=== PATIENT | male | born 1960 | race Two or more races ===

== ENCOUNTER 2017-05-05 07:38 | Outpatient (CLI) | payer MEDICARE, OTHER ==
[~2017-05-05 07:38] MED LIST: ASPI-1169 PO; ATOR10TA PO; CARV25TA2 PO; FENO145T PO; OLME20TA13 PO
[2017-05-05] MEDS ORDERED: REGADENOSON 0.4 MG/5 ML DISP.SYRIN IVP ONE (09:30)
== END 2017-05-05 23:59 | disposition home or self-care (01) ==
LOC: NM 07:38
PROVIDERS: ATTEND Internal Medicine Interventional Cardiology
DX: R07.89 Other chest pain (principal)
CPT/HCPCS: 78452; A9502; J2785

== ENCOUNTER 2017-06-08 13:15 | Inpatient (IN) | payer MEDICARE, OTHER ==
[2017-06-07 20:00] VITALS: BP 123/72
[~2017-06-08] VITALS: Ht 175.3 cm; Wt 133.8 kg
[2017-06-08] VITALS: BP 113/61
--- NOTE | 2017-06-08 13:20 | NUR ---
AAOX3, CAME TO ER C/O CHEST PAIN TOOK NITRO X 3, NO RELIEF. RR IS EVEN AND UNLABORED. SKIN IS WARM AND NON DIAPHORETIC. PLACED ON THE MONITOR, V-TACH ON THE MONITOR, DR YI MADE AWARE. EKG IN PROGRESS AT . PLACED ON PACER PADS. STARTED IVHL L HAND 18G. BLOOD DRAWN AND SENT TO THE LAB.
[2017-06-08] MEDS ORDERED: ONDANSETRON HCL/PF 4 MG/2 ML VIAL IVP ONE (13:30)
[2017-06-08] MEDS ORDERED: ASPIRIN 81 MG TAB.CHEW PO ONE (13:30)
[2017-06-08] MEDS ORDERED: LIDOCAINE 100MG/5ML DISP SYR ONE (13:33)
[2017-06-08] MEDS ORDERED: LIDOCAINE 2% 20 ML MDV ONE (13:33)
[2017-06-08 13:38] LABS: BASOPHILS # (AUTO) 0.1 /CMM (0.0-0.2); BASOPHILS % (AUTO) 0.7 % (0.0-2.0); HEMATOCRIT 45 % (39-51); HEMOGLOBIN 15.1 g/dL (13.5-17.5); LYMPHOCYTES # (AUTO) 3.1 /CMM (0.8-4.8); LYMPHOCYTES % (AUTO) 30.7 % (20.0-44.0); MEAN CORPUSCULAR HGB CONC 34 g/dl (31.0-36.0); MEAN CORPUSCULAR VOLUME 90 fL (80-96); MONOCYTES # (AUTO) 0.7 /CMM (0.1-1.30); MONOCYTES % (AUTO) 7.3 % (2.0-12.0); NEUTROPHILS # (AUTO) 5.9 /CMM (1.8-8.9); NEUTROPHILS % (AUTO) 59.3 % (43.0-81.0); PLATELET COUNT (AUTO) 282 /CMM (150-450); RDW COEFFICIENT OF VARIATION 12.8 (11.5-15.0); RED BLOOD CELL COUNT(AUTO) 5.03 MIL/uL (4.5-6.0)
[2017-06-08] MEDS ORDERED: ONDANSETRON HCL/PF 4 MG/2 ML VIAL ONE (13:41)
[2017-06-08] MEDS ORDERED: ASPIRIN 81 MG TAB.CHEW ONE (13:41)
--- NOTE | 2017-06-08 13:43 | NUR ---
CALLED 'S OFFICE, PAGED TO CALL BACK.
[2017-06-08 13:47] LABS: CALCIUM, SERUM 9.1 mg/dL (8.5-10.1); CREATININE 1.1 mg/dL (0.6-1.3); POTASSIUM 4.6 mmol/L (3.5-5.1)
[2017-06-08 13:48] LABS: INR 0.91 (0.85-1.15)
[2017-06-08 13:53] LABS: ALBUMIN 3.4 g/dL (3.4-5.0); BILIRUBIN,DIRECT 0.1 mg/dL (0.0-0.2); BILIRUBIN,TOTAL 0.3 mg/dL (0.2-1.0)
[2017-06-08 13:58] LABS: TROPONIN I 0.726 ng/mL (0.00-0.056)
[2017-06-08] MEDS ORDERED: IV LIDOCAINE HCL/D5W/PF/500ML 2,000 MG in PREMIX 1 EA IV PRN (14:00)
[2017-06-08] MEDS ORDERED: LIDOCAINE 100MG/5ML DISP SYR IV ONE (14:00)
[2017-06-08] MEDS ORDERED: AMIODARONE 150 MG/3 ML VIAL IV ONE (14:00)
--- NOTE | 2017-06-08 14:08 | NUR ---
CALLED AT [phone], LEFT MESSAGE ON VOICEMAIL.
--- NOTE | 2017-06-08 14:15 | NUR ---
ICU 253
--- NOTE | 2017-06-08 14:15 | NUR ---
AMIODARONE BOLUS NOT GIVEN -- DUPLICATE ORDER
--- NOTE | 2017-06-08 14:20 | NUR ---
CALLED CORPORATE OPERATIONS COMPLIANCE MANAGER CARDIOLOGY, CORPORATE OPERATIONS COMPLIANCE MANAGER, TRANSFERRED CALL TO
[2017-06-08] MEDS ORDERED: AMIODARONE 150 MG in IV D5W 100 ML IV ONE (14:30)
[2017-06-08] MEDS ORDERED: AMIODARONE 900 MG in IV D5W 482 ML IV PRN ×2 (14:30→17:30)
[2017-06-08] MEDS ORDERED: METOPROLOL TARTRATE INJ 5 MG/5 ML AMPUL ONE (14:38)
[2017-06-08] MEDS ORDERED: MIDAZOLAM HCL 2 MG/2ML VIAL ONE ×2 (14:38→14:39)
--- NOTE | 2017-06-08 14:40 | NUR ---
DR PORTILLO INITIALLY HAS A VERBAL ORDER OF VERSED 2MG, BUT PATIENT'S BP WAS DROPPED TO 85/52, DR PORTILLO CHANGED HIS ORDER TO ETOMIDATE INSTEAD.
[2017-06-08] MEDS ORDERED: ETOMIDATE 2 MG/ML VIAL ONE (14:41)
--- NOTE | 2017-06-08 14:45 | NUR ---
CARDIOVERSION DONE BY DR. PORTILLO, DR. COHEN PRESENT AT BS. RT AT BS. WITH ERBAL ORDERS RECEIVED AND CARRIED OUT PER PROTOCOL. 1445- 25MG IVP ETOMIDATE 1447- 25MG IVP ETOMIDATE 1448- 25MG IVP ETOMIDATE 1449- 25MG IVP ETOMIDATE 1450- 200 JOULES UNITS DELIVERED 1451 PT CONVERTED HR-71. BP-109/67, 24 RR, 100% RA. WILL MONITOR.
[2017-06-08] MEDS ORDERED: AMIODARONE 900 MG in IV D5W 500 ML IV PRN (15:00)
[2017-06-08] MEDS: Magnesium 1GM/D5W 100ML PREMIX 100 ML IV SCH ×2 (15:00→15:46)
[2017-06-08] MEDS ORDERED: Magnesium 1 GM/2 ML VIAL IV ONE (15:30)
[2017-06-08] MEDS ORDERED: VILA40TA PO (15:41)
[2017-06-08] MEDS ORDERED: FURO20TA4 PO (15:41)
[2017-06-08] MEDS ORDERED: LURA40TA PO (15:41)
[2017-06-08] MEDS ORDERED: FLUT1DIS3 IH (15:41)
[2017-06-08] MEDS ORDERED: ICOS1CAP PO (15:41)
[2017-06-08] MEDS ORDERED: METF-442 PO (15:41)
[2017-06-08] MEDS ORDERED: GLIM2TAB2 PO (15:41)
[2017-06-08] MEDS ORDERED: CLOP75TA15 PO (15:41)
[2017-06-08] MEDS ORDERED: MAG1TAB.8 PO (15:41)
[2017-06-08] MEDS ORDERED: ESOM40CA PO (15:41)
[2017-06-08] MEDS ORDERED: TAMS0.4C34 PO (15:41)
[2017-06-08] MEDS ORDERED: Magnesium 1GM/D5W 100ML PREMIX 200 ML IV ONE (15:43)
--- NOTE | 2017-06-08 16:02 | NUR ---
REPORT GIVEN TO DEAN BASILIO FOR [facility] ICU 253.
[2017-06-08 17:23] VITALS: BP 128/78
[2017-06-08] MEDS ORDERED: Z GUARD REMEDY 2 OZ OINT TP PRN (17:30)
[2017-06-08] MEDS ORDERED: ETOMIDATE 2 MG/ML VIAL IV ONE (17:30)
[2017-06-08] MEDS ORDERED: ONDANSETRON HCL/PF 4 MG/2 ML VIAL IVP PRN (17:30)
[2017-06-08] MEDS ORDERED: ZOLPIDEM TARTRATE 5 MG TABLET PO PRN (17:30)
[2017-06-08] MEDS ORDERED: FUROSEMIDE 20 MG TABLET PO SCH (17:30)
[2017-06-08] MEDS ORDERED: ACETAMINOPHEN 325 MG TABLET PO PRN (17:30)
[2017-06-08] MEDS ORDERED: HYDROCODONE/APAP 5/325MG 1 EACH TABLET PO PRN (17:30)
[2017-06-08] MEDS ORDERED: MAG HYDROX/AL HYDROX/SIMETH 30 ML UDC PO PRN (17:30)
[2017-06-08] MEDS ORDERED: MAGNESIUM HYDROXIDE 30 ML UDC PO PRN (17:30)
--- NOTE | 2017-06-08 17:53 | NUR ---
STEPHANIE RN NOTE 1715: Admitted 56 y/o Georgian male patient from ER for chest pain, SP cardioversion for episode of Vtach. Placed on bed comfortably. A/Ox4. With 2 PIVs intact. On Amio drip @ 1mg/min, to continue started at 1430 per ER nurse. SR 62 on the monitor. Witrh 1/10 chest pain, verbalized relief, said pain is a lot better. 94% on room air, no SON noted, patient requested to remove NC, will monitor for breathing. Skin assessment done, intact. and mother of patient in the room, made all aware for the POC. 2 bags on Mg given per ER nurse. 1750: blow mold technician at bedside. No any significant changes noted at this time. Kept clean, warm and dry. Needs attended. Kept call light at reach. Will continue to monitor.
[2017-06-08] MEDS ORDERED: SIMETHICONE 80 MG TAB.CHEW PO PRN (18:00)
[2017-06-08] MEDS: IV NS 0.9% 1,000 ML IV PRN (18:19)
[2017-06-08 20:00] VITALS: BP 123/72
[2017-06-08] MEDS: CARVEDILOL 12.5 MG TABLET PO SCH (20:52)
[2017-06-08] MEDS: FENOFIBRATE NANOCRYS (145 MG) 145 MG TABLET PO SCH (21:58)
[2017-06-08] MEDS: ATORVASTATIN 10 MG TABLET PO SCH (21:58)
[2017-06-09] VITALS (7 sets, daily range): BP systolic 113–142; BP diastolic 61–90
--- NOTE | 2017-06-09 01:40 | NUR ---
TD RN PT INCREASINGLY MORE RESTLESS; REMOVING NASAL CANULA, IV, PULLING AT AGARWAL CATHETER. ATTEMPT TO REORIENT PT; HOWEVER PT NON VERBAL AT THIS TIME. CONTINUE TO MONITOR. Addendum: 06/09/17 at 0249 by NOAH TINOCO RN ERROR---WRONG PATIENT
--- NOTE | 2017-06-09 02:26 | NUR ---
RN NOTES 0218 Rufino Beltran from laboratory called for troponin 3.163; levels trending down. Currrently on plavix. Notified primary RN Breanna.
[2017-06-09] MEDS: IV NS 0.9% 1,000 ML IV PRN ×2 (06:30→20:06)
--- NOTE | 2017-06-09 07:27 | NUR ---
STEPHANIE RN NOTE PATIENT IN BED , ALL NEEDS ATTENDED , ALERT ,ORIENTED X3 ,NO SOB NOTED AT THIS TIME , ON TELE MONITOR SR 62 , LT FA ON IVF ORDERED AND AMIODARONE DRIP , BED IN LOWEST AND LOCKED POSITION , CALL LIGHT WITHIN REACH , RESPIRATION EVEN UNLABORED , WILL CONT TO MONITOR CLOSELY ,NO C\O CHEST PAIN AT THIS TIME
[2017-06-09 08:17] LABS: BASOPHILS % (AUTO) 0.5 % (0.0-2.0); HEMATOCRIT 40 % (39-51); HEMOGLOBIN 13.5 g/dL (13.5-17.5); LYMPHOCYTES # (AUTO) 2.2 /CMM (0.8-4.8); LYMPHOCYTES % (AUTO) 24.6 % (20.0-44.0); MEAN CORPUSCULAR HGB CONC 34 g/dl (31.0-36.0); MEAN CORPUSCULAR VOLUME 91 fL (80-96); MONOCYTES # (AUTO) 0.7 /CMM (0.1-1.30); NEUTROPHILS # (AUTO) 5.6 /CMM (1.8-8.9); NEUTROPHILS % (AUTO) 63.9 % (43.0-81.0); PLATELET COUNT (AUTO) 230 /CMM (150-450); RDW COEFFICIENT OF VARIATION 13.9 (11.5-15.0); RED BLOOD CELL COUNT(AUTO) 4.39 MIL/uL (4.5-6.0); WHITE BLOOD COUNT (AUTO) 8.8 K/uL (4.3-11.0)
[2017-06-09] MEDS: METFORMIN 500 MG TABLET PO SCH ×2 (08:17→17:08)
[2017-06-09] MEDS: CLOPIDOGREL BISULFATE 75 MG TABLET PO SCH (08:17)
[2017-06-09] MEDS: FUROSEMIDE 20 MG TABLET PO SCH (08:18)
[2017-06-09] MEDS: ASPIRIN 81 MG TAB.CHEW PO SCH (08:19)
[2017-06-09] MEDS: TAMSULOSIN 0.4 MG CAP.SR.24H PO SCH (08:19)
[2017-06-09] MEDS: GLIMEPIRIDE 1 MG TABLET PO SCH (08:20)
[2017-06-09] MEDS: CARVEDILOL 12.5 MG TABLET PO SCH ×2 (08:22→21:05)
[2017-06-09 08:25] LABS: ALBUMIN 3.2 g/dL (3.4-5.0); BILIRUBIN,TOTAL 0.3 mg/dL (0.2-1.0); CALCIUM, SERUM 8.1 mg/dL (8.5-10.1); CREATININE 0.7 mg/dL (0.6-1.3); MAGNESIUM 1.7 mg/dL (1.8-2.4); POTASSIUM 4.3 mmol/L (3.5-5.1); TOTAL PROTEIN, SERUM 6.4 g/dL (6.4-8.2)
[2017-06-09 08:30] LABS: TROPONIN I 2.794 ng/mL (0.00-0.056)
[2017-06-09] MEDS: FLUTICASONE/VILANTEROL 1 EACH BLST.W.DEV IH SCH (08:38)
[2017-06-09] MEDS: PANTOPRAZOLE 40 MG VIAL IV SCH (08:39)
[2017-06-09] MEDS ORDERED: Medication Not On Formulary EA (Icosapent Ethyl (Vascepa) 2 CAP) PO SCH (09:00)
[2017-06-09] MEDS ORDERED: Medication Not On Formulary EA (Olmesartan Medoxomil (Benicar) 20 MG) PO SCH (09:00)
--- NOTE | 2017-06-09 09:23 | NUR ---
STEPHANIE RN NOTE SPOKE WITH DR COHEN STATED OK TO START AMIODARONE PO AFTER COMPLETED DRIP ,AWARE THAT TROPONIN 2.794, AWARE THAT PATIENT HAS CHEST DISCOMFORT
[2017-06-09] MEDS: Magnesium 1GM/D5W 100ML PREMIX 100 ML IV SCH ×2 (10:10→11:06)
[2017-06-09] MEDS: ENOXAPARIN SODIUM 100 MG/ML DISP.SYRIN SQ SCH ×2 (10:50→21:07)
--- NOTE | 2017-06-09 13:07 | NUR ---
STEPHANIE RN NOTES GONZALEZ MORGAN RN AT BEDSIDE AWARE TROPONIN IS 2.794, EF IS 20%, PT. ON LOVENOX
[2017-06-09] MEDS: AMIODARONE HCL 200 MG TABLET PO SCH ×2 (14:00→17:08)
--- NOTE | 2017-06-09 15:17 | NUR ---
STEPHANIE RN NOTES KELLEE MORAN FROM [facility] CALLED ABOUT FOR PATIENT TRANSFER SOON FOR OBLATION PER DR. COHEN REQUEST
--- NOTE | 2017-06-09 18:44 | NUR ---
STEPHANIE RN NOTES PT UP IN THE CHAIR, NO SIGNS OF DISTRESS NOTED, CONTINUE ON IV FLUIDS, WILL CONTINUE TO MONITOR
--- NOTE | 2017-06-09 19:30 | NUR ---
STEPHANIE RN INITIAL NOTE PT RECEIVED SITTING UP IN CHAIR. A/O X4 AND ABLE TO VERBALIZE NEEDS. ON ROOM AIR AND SATURATING 96%. BREATHING REGULAR AND UNLABORED. NO C/O CHEST PAIN AT THIS TIME. TELE- SR W BBB AND INVERTED T WAVE WITH OCCASIONAL PVC. IV L HAND/ FOREARM CLEAN, DRY WITH FLUIDS INFUSING. CALL LIGHT WITHIN REACH. WILL CONTINUE TO MONITOR.
[2017-06-09] MEDS: FENOFIBRATE NANOCRYS (145 MG) 145 MG TABLET PO SCH (21:05)
[2017-06-09] MEDS: ATORVASTATIN 10 MG TABLET PO SCH (21:05)
[2017-06-10] VITALS: BP 123/77
[2017-06-10 00:05] VITALS: BP 123/77
--- NOTE | 2017-06-10 00:45 | NUR ---
STEPHANIE RN NOTE ENDORSED TO IVELISSE MORAN FOR CONTINUITY OF CARE.
--- NOTE | 2017-06-10 00:47 | NUR ---
STEPHANIE RN NOTE REPORT RECEIVED FROM NURSE PERRY. PT RECEIVED IN BED ASLEEP, AROUSABLE. NO DISTRESS OR DISCOMFORT NOTED. DENIES PAIN. IVF NS @ 75 ML/HR INFUSING WELL LT HAND, NO S/S OF INFILTRATION NOTED. ON TELE SR WITH BBB AND INVERTED T WAVE HR 63. SIDE RAILS UP X 2 AND CALL LIGHT WITHIN REACH. CONTINUE TO MONITOR HIM.
[2017-06-10 04:00] VITALS: BP 125/80
[2017-06-10 04:12] VITALS: BP 125/80
--- NOTE | 2017-06-10 06:55 | NUR ---
STEPHANIE RN NOTE PT IN BED ASLEEP, AROUSABLE. NO DISTRESS OR DISCOMFORT NOTED. DENIES PAIN. ON TELE MONITOR SB 52. IVF INFUSING WELL, NO S/S OF INFILTRATION NOTED. SIDE RAILS UP X 2 AND CALL LIGHT WITHIN REACH. WILL ENDORSE TO DAY SHIFT NURSE FOR CONTINUE TO CARE.
[2017-06-10 07:12] LABS: BASOPHILS # (AUTO) 0.1 /CMM (0.0-0.2); BASOPHILS % (AUTO) 0.7 % (0.0-2.0); EOSINOPHILS % (AUTO) 3.9 % (0.0-6.0); HEMATOCRIT 42 % (39-51); HEMOGLOBIN 14.2 g/dL (13.5-17.5); LYMPHOCYTES # (AUTO) 1.9 /CMM (0.8-4.8); LYMPHOCYTES % (AUTO) 27.2 % (20.0-44.0); MEAN CORPUSCULAR HGB CONC 34 g/dl (31.0-36.0); MEAN CORPUSCULAR VOLUME 90 fL (80-96); MONOCYTES # (AUTO) 0.5 /CMM (0.1-1.30); MONOCYTES % (AUTO) 7.2 % (2.0-12.0); NEUTROPHILS # (AUTO) 4.3 /CMM (1.8-8.9); PLATELET COUNT (AUTO) 235 /CMM (150-450); RDW COEFFICIENT OF VARIATION 13.6 (11.5-15.0); RED BLOOD CELL COUNT(AUTO) 4.69 MIL/uL (4.5-6.0)
[2017-06-10 07:44] LABS: ALBUMIN 3.2 g/dL (3.4-5.0); BILIRUBIN,TOTAL 0.3 mg/dL (0.2-1.0); CALCIUM, SERUM 8.5 mg/dL (8.5-10.1); CREATININE 0.7 mg/dL (0.6-1.3); MAGNESIUM 1.5 mg/dL (1.8-2.4); PHOSPHORUS 3.7 mg/dL (2.5-4.9); POTASSIUM 4.1 mmol/L (3.5-5.1); TOTAL PROTEIN, SERUM 6.7 g/dL (6.4-8.2)
[2017-06-10 07:47] LABS: TROPONIN I 1.272 ng/mL (0.00-0.056)
[2017-06-10 08:00] VITALS: BP_SYST 143; BP_SYST 149; BP_DIAS 95
--- NOTE | 2017-06-10 08:00 | NUR ---
TD/RN AM SHIFT INITIAL NOTES RECEIVED PT AWAKE AMBULATORY IN THE BATHROOM. A/O X 4, DENIES ANY SYMPTOMS, NO ACUTE CHANGE OF CONDITION NOTED. PT ON HAY AIR SATURATING WELL, RESPIRATIONS EVEN & UNLABORED. ON TELE MONITORING WITH SINUS RHYTHM WITH BBB AND INVERTED T-WAVE, HR 60. WITH ON GOING IV INFUSION OF NS @ 75CC/HR, IV SITE PATENT WITH NO S/S OF INFECTION. PT NOTED TO EASILY IRRITATED, VERBALIZED WANTING TO GO HOME. PT IS COMFORTABLE AT THIS TIME. SCHEDULED AM MEDS TO BE GIVEN. CL WITHIN REACHED AND SAFETY MAINTAINED. ON GOING MONITORING.
[2017-06-10] MEDS: FLUTICASONE/VILANTEROL 1 EACH BLST.W.DEV IH SCH (08:35)
[2017-06-10] MEDS: PANTOPRAZOLE 40 MG VIAL IV SCH (08:36)
[2017-06-10] MEDS: GLIMEPIRIDE 1 MG TABLET PO SCH (08:36)
[2017-06-10] MEDS: AMIODARONE HCL 200 MG TABLET PO SCH (08:37)
[2017-06-10] MEDS: ASPIRIN 81 MG TAB.CHEW PO SCH (08:37)
[2017-06-10 08:38] VITALS: BP 149/95
[2017-06-10] MEDS: TAMSULOSIN 0.4 MG CAP.SR.24H PO SCH (08:38)
[2017-06-10] MEDS: METFORMIN 500 MG TABLET PO SCH (08:38)
[2017-06-10] MEDS: CARVEDILOL 12.5 MG TABLET PO SCH (08:38)
[2017-06-10] MEDS: FUROSEMIDE 20 MG TABLET PO SCH (08:38)
[2017-06-10] MEDS: CLOPIDOGREL BISULFATE 75 MG TABLET PO SCH (08:39)
[2017-06-10] MEDS: ENOXAPARIN SODIUM 100 MG/ML DISP.SYRIN SQ SCH (08:39)
--- NOTE | 2017-06-10 08:45 | NUR ---
TD/RN ROUNDS - DR. COHEN UPDATED PT'S CONDITION, MADE AWARE OF TROPONIN LEVEL 1.272. PT SEEN & EXAMINED BY DR. COHEN. NO NEW ORDERS RECEIVED AT THIS TIME. MONITORING CONTINUED.
[2017-06-10] MEDS ORDERED: Magnesium 1GM/D5W 100ML PREMIX 100 ML IV SCH (10:30)
--- NOTE | 2017-06-10 11:19 | NUR ---
MS1/HEAD OF LOSS PREVENTION HOME PT SEEN BY CATHY SAENZ WITH ORDER TO DISCHARGE PT HOME. DISCHARGE INSTRUCTIONS GIVEN TO PT, VERBALIZED UNDERSTANDING. PRESCRIPTION GIVEN TO PT, PRESCRIPTION ALSO FAXED TO PREFERRED PHARMACY. IV SITES REMOVED, PRESSURE DRESSING APPLIED, NO S/S OF INFECTION. ID BAND REMOVED. PERSONAL BELONGINGS RETURNED TO PT, INVENTORY LOG SIGNED OFF. PT LEFT TD UNIT AMBULATORY, WITH STEADY GAIT ACCOMPANIED BY PT'S , LEFT HOSPITAL IN PRIVATE CAR.
== END 2017-06-10 11:26 | disposition home or self-care (01) | DRG 280 ==
LOC: ER 13:18 → ICU 14:44 → TELE-TD 16:35 → MEDSG1 06-10 10:09
PROVIDERS: ADMIT Hospitalist; ATTEND Hospitalist
PROC: 5A2204Z Restoration of Cardiac Rhythm, Single (ICD-10-PCS; principal; 2017-06-08)
DX: I47.2 Ventricular tachycardia (principal); I21.A1 Myocardial infarction type 2; N17.0 Acute kidney failure with tubular necrosis; E44.1 Mild protein-calorie malnutrition; Z68.41 Body mass index [BMI] 40.0-44.9, adult; I50.22 Chronic systolic (congestive) heart failure; I11.0 Hypertensive heart disease with heart failure; E66.01 Morbid (severe) obesity due to excess calories; E83.42 Hypomagnesemia; Z95.1 Presence of aortocoronary bypass graft; I25.10 Atherosclerotic heart disease of native coronary artery without angina pectoris; E78.5 Hyperlipidemia, unspecified; I25.2 Old myocardial infarction; Z87.891 Personal history of nicotine dependence; I25.5 Ischemic cardiomyopathy; I34.0 Nonrheumatic mitral (valve) insufficiency; Z95.5 Presence of coronary angioplasty implant and graft
CPT/HCPCS: 36415; 71045-TC; 80048-TC; 80053-TC; 80061-TC; 80076-TC; 82962-TC; 83735-TC; 84100-TC; 84484-TC; 85025-TC; 85730-TC; 87081-TC; 93307-TC; A4216; A4606; C9113; J0282; J1650; J2001; J2250; J2405; J3475; J3490; J7030; J7050; J7060; Z7610

== ENCOUNTER 2018-04-10 08:22 | Outpatient (CLI) | payer MEDICARE, MEDICAID ==
[~2018-04-10] VITALS: Ht 172.7 cm; Wt 129.3 kg
[~2018-04-10 08:22] MED LIST changes: +CLOP75TA15 PO; +ESOM40CA PO; +FLUT1DIS3 IH; +FURO20TA4 PO; +GLIM2TAB2 PO; +ICOS1CAP PO; +LURA40TA PO; +MAG PO; +METF-442 PO; +TAMS0.4C34 PO; +VILA40TA PO
[2018-04-10] MEDS ORDERED: IOHEXOL-350 100 ML VIAL IV ONE (10:40)
[2018-04-10] MEDS ORDERED: IV NS 0.9% 250 ML IV ONE (10:40)
[2018-04-10] MEDS ORDERED: NITROGLYCERIN 0.4 MG/TAB BOTTLE SL ONE (12:00)
[2018-04-10] MEDS ORDERED: IV NS 0.9% 500 ML IV ONE (12:00)
[2018-04-10] MEDS ORDERED: METOPROLOL TARTRATE INJ 5 MG/5 ML AMPUL IVP ONE (12:00)
[2018-04-10 12:17] LABS: CALCIUM, SERUM 8.7 mg/dL (8.5-10.1); CREATININE 0.8 mg/dL (0.6-1.3); POTASSIUM 4.5 mmol/L (3.5-5.1)
== END 2018-04-10 12:45 | disposition home or self-care (01) ==
LOC: CT 08:22
PROVIDERS: ATTEND Internal Medicine Interventional Cardiology
DX: Z01.818 Encounter for other preprocedural examination (principal); I25.10 Atherosclerotic heart disease of native coronary artery without angina pectoris; R07.9 Chest pain, unspecified; I10 Essential (primary) hypertension; Z95.1 Presence of aortocoronary bypass graft
CPT/HCPCS: 36415; 75574; 80048; J7050; Q9967

== ENCOUNTER 2018-04-12 07:48 | Outpatient (CLI) | payer MEDICARE ==
[2018-04-12] MEDS ORDERED: REGADENOSON 0.4 MG/5 ML DISP.SYRIN IVP ONE (09:00)
== END 2018-04-12 23:59 | disposition home or self-care (01) ==
LOC: NM 07:48
PROVIDERS: ATTEND Internal Medicine Interventional Cardiology
DX: Z01.818 Encounter for other preprocedural examination (principal); I25.10 Atherosclerotic heart disease of native coronary artery without angina pectoris
CPT/HCPCS: A9502; J2785

== ENCOUNTER 2018-09-12 15:47 | Inpatient (IN) | payer MEDICARE, MEDICAID ==
[2018-09-12] VITALS (10 sets, daily range): BP systolic 97–137; BP diastolic 49–81
[~2018-09-12] VITALS: Ht 175.3 cm; Wt 119.3 kg
--- NOTE | 2018-09-12 15:50 | NUR ---
PATIENT BIB VIA WHEEL CHAIR BY STAFF FROM DR COHEN'S OFFICE DUE TO RAPID HEART RATE. ON ROOM AIR, ALERT AND ORIENTED X 4. CONNECTED TO THE MONITOR AND PULSE OX. KEPT COMFORTABLE, WILL CONTINUE TO MONITOR ACCORDINGLY.
[2018-09-12] MEDS ORDERED: AMIODARONE 150 MG/3 ML VIAL IV ONE ×3 (15:59→16:00)
[2018-09-12] MEDS ORDERED: IV NS 0.9% 500 ML BAG IV ONE (16:00)
--- NOTE | 2018-09-12 16:01 | NUR ---
Amiodarone medication ordered by and ordered changed by pharmacist, made aware.
[2018-09-12 16:04] LABS: BASOPHILS # (AUTO) 0.1 /CMM (0.0-0.2); BASOPHILS % (AUTO) 1.1 % (0.0-2.0); EOSINOPHILS % (AUTO) 1.9 % (0.0-6.0); HEMATOCRIT 47 % (39-51); LYMPHOCYTES # (AUTO) 3.4 /CMM (0.8-4.8); LYMPHOCYTES % (AUTO) 33.8 % (20.0-44.0); MEAN CORPUSCULAR HGB CONC 34 g/dl (31.0-36.0); MEAN CORPUSCULAR VOLUME 93 fL (80-96); MONOCYTES # (AUTO) 0.9 /CMM (0.1-1.30); MONOCYTES % (AUTO) 9.4 % (2.0-12.0); NEUTROPHILS # (AUTO) 5.4 /CMM (1.8-8.9); NEUTROPHILS % (AUTO) 53.8 % (43.0-81.0); PLATELET COUNT (AUTO) 234 /CMM (150-450); RED BLOOD CELL COUNT(AUTO) 5.07 MIL/uL (4.5-6.0)
[2018-09-12] MEDS ORDERED: AMIO200T4 PO (16:08)
--- NOTE | 2018-09-12 16:20 | NUR ---
started Amiodarone loading dose to run for 10 mins, HR of 154. tolerated well.
[2018-09-12] MEDS ORDERED: AMIODARONE 900 MG in IV D5W 482 ML IV PRN (16:30)
[2018-09-12] MEDS ORDERED: AMIODARONE 150 MG in IV D5W 100 ML IV ONE (16:30)
--- NOTE | 2018-09-12 16:37 | NUR ---
CALLED DR. NOEL ALMANZA.
[2018-09-12 16:43] LABS: CALCIUM, SERUM 9.7 mg/dL (8.5-10.1); CREATININE 0.9 mg/dL (0.6-1.3); POTASSIUM 4.5 mmol/L (3.5-5.1)
--- NOTE | 2018-09-12 16:44 | NUR ---
called ICU and spoke to Susie MORAN and report given.
[2018-09-12 16:49] LABS: ALBUMIN 3.7 g/dL (3.4-5.0); BILIRUBIN,DIRECT 0.1 mg/dL (0.0-0.2); BILIRUBIN,TOTAL 0.2 mg/dL (0.2-1.0); TOTAL PROTEIN, SERUM 7.6 g/dL (6.4-8.2)
[2018-09-12] MEDS ORDERED: ASPIRIN 325 MG TABLET PO STA (16:57)
[2018-09-12] MEDS ORDERED: ENOXAPARIN SODIUM 80 MG/0.8 ML DISP.SYRIN SQ SCH (17:13)
[2018-09-12] MEDS ORDERED: ZOLPIDEM TARTRATE 5 MG TABLET PO PRN (17:30)
[2018-09-12] MEDS ORDERED: Z GUARD REMEDY 2 OZ OINT TP PRN (17:30)
[2018-09-12] MEDS ORDERED: MAGNESIUM HYDROXIDE 30 ML UDC PO PRN (17:30)
[2018-09-12] MEDS ORDERED: HYDROCODONE/APAP 5/325MG 1 EACH TABLET PO PRN (17:30)
[2018-09-12] MEDS ORDERED: ONDANSETRON HCL/PF 4 MG/2 ML VIAL IVP PRN (17:30)
[2018-09-12] MEDS ORDERED: MAG HYDROX/AL HYDROX/SIMETH 30 ML UDC PO PRN (17:30)
[2018-09-12] MEDS ORDERED: ACETAMINOPHEN 325 MG TABLET PO PRN (17:30)
--- NOTE | 2018-09-12 17:35 | NUR ---
wheeled patient via gurney accompanied by RN and EMT in no apparent distress noted. Susie RN at bedside to assume care.
--- NOTE | 2018-09-12 17:35 | NUR ---
RN INITIAL NOTES RECEIVED PT AWAKE, A/0X4. PT AMBULATORY. FROM ER FOR A.FLUTTER/NSTEMI. DENIES CHEST PAIN. NO SOB NOTED. PT PLACED COMFORTABLY TO BED. CONNECTED TO MONITOR. IV LINES IN PLACE. PT ON AMIO DRIP AT 1MG/MIN. PT SINUS TACHYCARDIA WITH BBB ON MONITOR. BODY ASSESSMENT DONE. SKIN INTACT. PT CONTINENT. PROVIDED URINAL. DR GONZALEZ AWARE OF ADMISSION. PT ORIENTED TO ROOM AND USE OF CALL LIGHT. WILL CLOSELY MONITOR
[2018-09-12] MEDS ORDERED: DILTIAZEM HCL IV 125 MG in IV NS 0.9% 100 ML IV PRN (20:00)
[2018-09-12] MEDS ORDERED: DILTIAZEM HCL 50 MG IV IV ONE (20:00)
--- NOTE | 2018-09-12 20:00 | NUR ---
THEATRICAL TROUPER - NOTES - RECEIVED PT AWAKE, A/O X4. PT AMBULATORY. DENIES CHEST PAIN. NO SOB NOTED.IV LINES IN PLACE. PT ON AMIO DRIP AT 1MG/MIN, WILL SWITCH TO 0.5 MG AT 2230. PT SINUS TACHYCARDIA WITH BBB ON MONITOR. BODY ASSESSMENT DONE. SKIN INTACT. PT CONTINENT. PROVIDED URINAL. WILL CLOSELY MONITOR
--- NOTE | 2018-09-12 20:08 | NUR ---
PT IS ON AMIODARONE DRIP AND STILL HAS HEART RATE IN THE 150S, BP WNL, PT IS ASYMPTOMATIC, AWAKE, ALERT X 4, ABLE TO STAND UP AND WALK WITHOUT PROBLEM, NO COMPLAINTS OF PAIN OR NAUSEA. I CALLED DR KRISTEN FLOWERS AND HE ORDERED CARDIZEM 5 MG IVP AND CARDIZEM DRIP AT 5 MG/HR NO TITRATION. ORDERS CARRIED OUT, WILL CONTINUE TO MONITOR
--- NOTE | 2018-09-12 21:30 | NUR ---
PT REQUESTED AMBIEN TO SLEEP, AMBIEN 5 MG GIVEN. AND NORCO 5/325 GIVEN FOR 08/30 PAIN. WILL CONTINUE TO MONITOR
[2018-09-13] VITALS (24 sets, daily range): BP systolic 87–128; BP diastolic 55–88
[2018-09-13] MEDS ORDERED: ADENOSINE 6 MG/2 ML VIAL IVP ONE ×2 (01:30)
--- NOTE | 2018-09-13 01:30 | NUR ---
PT STILL HAS HEART RATE 150S @ 0116 PT WAS GIVEN ADENOSINE 6 MG IVP FAST AND NO BREAK IN RHYTHM, PT STAYED AT HR 150S. @ 0128 PT WAS GIVEN ADENOSINE 12 MG IVP FAST AND ALSO NO BREAK IN RHYTHM, HR REMAINS IN 150S.
[2018-09-13] MEDS ORDERED: FUROSEMIDE 20 MG/2 ML VIAL IV SCH (03:00)
--- NOTE | 2018-09-13 03:30 | NUR ---
PT COMPLAINED OF SLIGHT SHORTNESS OF BREATH AND WEAKNESS AFTER ADENOSINE, KRISTEN FLOWERS NOTIFIED, 20 MG LASIX GIVEN IVP
[2018-09-13 04:51] LABS: BASOPHILS # (AUTO) 0.1 /CMM (0.0-0.2); EOSINOPHILS % (AUTO) 2.3 % (0.0-6.0); HEMATOCRIT 46 % (39-51); HEMOGLOBIN 15.9 g/dL (13.5-17.5); LYMPHOCYTES # (AUTO) 4.4 /CMM (0.8-4.8); LYMPHOCYTES % (AUTO) 41.3 % (20.0-44.0); MEAN CORPUSCULAR HGB CONC 35 g/dl (31.0-36.0); MEAN CORPUSCULAR VOLUME 92 fL (80-96); MONOCYTES # (AUTO) 0.8 /CMM (0.1-1.30); MONOCYTES % (AUTO) 7.7 % (2.0-12.0); NEUTROPHILS % (AUTO) 47.7 % (43.0-81.0); PLATELET COUNT (AUTO) 244 /CMM (150-450); RED BLOOD CELL COUNT(AUTO) 4.95 MIL/uL (4.5-6.0); WHITE BLOOD COUNT (AUTO) 10.5 K/uL (4.3-11.0)
[2018-09-13 04:59] LABS: CALCIUM, SERUM 8.9 mg/dL (8.5-10.1); CREATININE 0.9 mg/dL (0.6-1.3); MAGNESIUM 1.6 mg/dL (1.8-2.4); PHOSPHORUS 4.4 mg/dL (2.5-4.9); POTASSIUM 4.4 mmol/L (3.5-5.1)
[2018-09-13 05:22] LABS: THYROID STIMULATING HORMONE 3.267 uIU/mL (0.358-3.74)
[2018-09-13] MEDS ORDERED: PANTOPRAZOLE 40 MG TABLET.DR PO SCH (07:30)
--- NOTE | 2018-09-13 07:30 | NUR ---
HYDROELECTRIC PRODUCTION MANAGER INITIAL NOTES DR COHEN AT BEDSIDE. PT NOTED TO BE IN SVT AND CARDIOVERTED BACK TO SINUS RHYTHM. PLACED ON O2 MASK AT 4L TO MAINTAIN 02 SAT ABOVE 94% POST PROPOFOL ADMINISTRATION. PT A/O X4 AND DENIES ANY PAIN AT THIS. PERIPHERAL IVS NOTED TO BE PATENT AND INTACT. NO REDNESS OR SIGNS OF INFILTRATION NOTED. PT CURRENTLY RECEIVING AMIO DRIP AT 0.5MG AND CARDIZEM DRIP AT 5MG. WILL VERIFY WITH MD IF HE WOULD LIKE TO FURTHER CONTINUE OR D/C DRIPS. RT AT BEDSIDE FOR F/U EKG. BED IN LOW LOCKED POSITION, SIDE RAILS UP X, CALL LIGHT WITHIN REACH, WILL CONTINUE TO MONITOR
[2018-09-13] MEDS: Magnesium 1GM/D5W 100ML PREMIX 100 ML IV SCH ×2 (08:41→10:13)
[2018-09-13] MEDS ORDERED: CARVEDILOL 12.5 MG TABLET PO SCH (09:00)
[2018-09-13] MEDS ORDERED: AMIODARONE HCL 200 MG TABLET PO SCH (09:00)
[2018-09-13] MEDS ORDERED: AMIO200T7 PO (10:16)
[2018-09-13] MEDS ORDERED: CARV12.52 PO (10:16)
[2018-09-13] MEDS ORDERED: SIMV40TA5 PO (10:23)
--- NOTE | 2018-09-13 12:07 | NUR ---
REDUCTION FURNACE OPERATORVETERINARY VIRUS SERUM INSPECTOR NOTES PT DISCHARGED FROM FACILITY IN STABLE CONDITION. NO SOB OR ACUTE SIGNS OF DISTRESS PRIOR TO DISCHARGED. HE REMAINED SR POST CARDIOVERSION. VSS PRIOR TO D/C. PERIHERNIAL IVS SUCCESSFULLY REMOVED. D/C INSTRUCTIONS ALONG WITH EDUCATION AND PRESCRIPTION EDU PROVIDED. PT VERBALIZED FULL UNDERSTANDING OF INSTRUCTIONS AND MATERIALS PROVIDED. HE WAS SAFELY ESCORTED TO MAIN LOBBY AND LEFT VIA PRIVATE VEHICLE WITH ALL BELONGINGS
== END 2018-09-13 12:26 | disposition home or self-care (01) | DRG 281 ==
LOC: ER 15:50 → ICU 16:51
PROVIDERS: ADMIT Student in an Organized Health Care Education/Training Program; ATTEND Student in an Organized Health Care Education/Training Program
PROC: 5A2204Z Restoration of Cardiac Rhythm, Single (ICD-10-PCS; principal; 2018-09-13)
DX: I48.92 Unspecified atrial flutter (principal); I21.A1 Myocardial infarction type 2; E87.1 Hypo-osmolality and hyponatremia; G47.33 Obstructive sleep apnea (adult) (pediatric); I10 Essential (primary) hypertension; I25.10 Atherosclerotic heart disease of native coronary artery without angina pectoris; E78.5 Hyperlipidemia, unspecified; I25.2 Old myocardial infarction; Z91.19 Patient's noncompliance with other medical treatment and regimen; E66.9 Obesity, unspecified; Z68.38 Body mass index [BMI] 38.0-38.9, adult; I47.2 Ventricular tachycardia
CPT/HCPCS: 36415; 71045-TC; 80048-TC; 80061-TC; 80076-TC; 83735-TC; 84100-TC; 84443-TC; 84484-TC; 85025-TC; 85730-TC; 87081-TC; 93307-TC; G0378; J0153; J0282; J1650; J1940; J3475; J3490; J7030; J7060